=== PATIENT | male | born 1945 | race Caucasian/White ===

== ENCOUNTER 2024-08-16 15:54 | Inpatient (IN) | payer OTHER, MEDICARE ==
[~2024-08-16] VITALS: Ht 172.7 cm; Wt 68.0 kg
[2024-08-16 16:05] VITALS: PULSE 104; RESP 18; O2SAT 95
[2024-08-16] MEDS ORDERED: ACETAMINOPHEN 650MG SUPP PR PRN (16:15)
[2024-08-16] MEDS: ETOMIDATE 2MG/ML 10ML VIAL IV ONE (16:15)
[2024-08-16] MEDS: ROCURONIUM BROMIDE 10MG/ML VIAL 5ML IV ONE (16:15)
[2024-08-16] MEDS ORDERED: FENTANYL CITRATE/PF 50MCG/ML 2ML VIAL IV ONE (16:15)
[2024-08-16] MEDS ORDERED: ACETAMINOPHEN 650MG/20.3ML UDC NG PRN (16:15)
[2024-08-16] MEDS: MIDAZOLAM HCL 2 MG/2 ML VIAL IV ONE (16:20)
[2024-08-16 16:49] LABS: BASOPHILS % 0.3 % (0.0-2.0); DIFFERENTIAL COMMENT 0; EOSINOPHILS % 1.8 % (0.0-5.0); HEMATOCRIT. 50.1 % (42.0-52.0); HEMOGLOBIN. 16.3 g/dL (14.0-18.0); LYMPHOCYTES % 58.9 % (20.0-50.0); MEAN CORPUSCULAR HGB CONC 32.5 g/dL (31.0-37.0); MEAN CORPUSCULAR VOLUME 101.4 fL (80.0-94.0); MONOCYTES % 7.7 % (2.0-8.0); NEUTROPHILS % 31.3 % (40.0-76.0); PLATELET 204 x1000/uL (130-400); RED BLOOD CELL COUNT 4.94 mill/uL (4.7-6.1); RED CELL DISTRIBUTION WIDTH 14.9 % (11.6-14.6); WHITE BLOOD COUNT 10.1 x1000/uL (4.5-11.0)
[2024-08-16] MEDS: NOREPINEPHRINE 8MG/250ML PMX 250 ML IV STA (16:50)
[2024-08-16 16:53] LABS: CALCIUM 9.5 mg/dL (8.7-10.4); CARBON DIOXIDE 21 mEq/L (21-32)
[2024-08-16 16:55] LABS: CHLORIDE 108 mEq/L (98-107); POTASSIUM 3.3 mEq/L (3.5-5.1); SODIUM 139 mEq/L (136-145)
[2024-08-16] MEDS: FENTANYL CITRATE/PF 50MCG/ML 2ML VIAL IV NR (16:56)
[2024-08-16 16:58] LABS: CREATININE 1.4 mg/dL (0.6-1.3); GLUCOSE 177 mg/dL (70-105); UREA NITROGEN BLOOD 16 mg/dL (9-23)
[2024-08-16 17:00] LABS: PHOSPHORUS 3.1 mg/dL (2.5-4.9)
[2024-08-16 17:11] LABS: TROPONIN I HIGH SENSITIVITY 89 ng/L (3.0-53)
[2024-08-16 17:17] LABS: BG BASE EXCESS -7.1 mmol/L (-2.0-3.0); BG CARBOXYHEMOGLOBIN 0.8 % (0.5-1.5); BG DEOXYHEMOGLOBIN 0.8 % (0.0-5.0); BG FRACTION INSPIRED OXYGEN 100; BG HCO3 ACT 18.9 mmol/L (21.0-28.0); BG METHEMOGLOBIN 0.3 % (0.5-1.5); BG OXYGEN SATURATION 99.2 % (94.0-98.0); BG OXYHEMOGLOBIN 98.1 % (94.0-98.0); BG PCO2 39.9 mmHg (35.0-48.0); BG PH 7.293 (7.350-7.450); BG PO2 213.5 mmHg (83.0-108.0); BG SAMPLE SITE RIGHT RADIAL; BG VENT MODE VENT - AC
[2024-08-16] MEDS: PROPOFOL 10MG/ML 100ML 100 ML IV ONE (17:30)
[2024-08-16] MEDS ORDERED: IPRATROPIUM/ALBUTEROL 0.5-3(2.5)MG/3ML NEB HHN PRN ×2 (17:45→18:45)
[2024-08-16 18:02] LABS: PROTHROMBIN TIME 11.4 sec (9.6-11.0)
[2024-08-16 18:10] VITALS: PULSE 111; RESP 18; O2SAT 99
[2024-08-16] MEDS ORDERED: GUAIFENESIN 200MG/10ML SUGAR FREE UDC PO PRN (19:00)
[2024-08-16] MEDS ORDERED: MAGNESIUM/ALUMINUM HYDROXIDE/SIMETHICONE 30ML UDC PO PRN (19:00)
[2024-08-16] MEDS ORDERED: NOREPINEPHRINE 32 MG in DEXT 5% WATER 218 ML IV PRN (19:00)
[2024-08-16] MEDS ORDERED: DEXTROSE 50% WATER 50ML SYRINGE IV PRN (19:00)
[2024-08-16] MEDS ORDERED: DOCUSATE SODIUM 100MG CAPSULE PO PRN (19:00)
[2024-08-16] MEDS ORDERED: ONDANSETRON HCL 4MG/2ML INJ IV PRN (19:00)
[2024-08-16 19:08] LABS: TROPONIN I HIGH SENSITIVITY 563 ng/L (3.0-53)
[2024-08-16] MEDS ORDERED: ENOXAPARIN 80MG/0.8ML SYR SUBCUT SCH (19:15)
[2024-08-16] MEDS: KCL 20MEQ/100ML PREMIX 100 ML IV SCH (19:19)
[2024-08-16] MEDS: DEXT 5%/0.9% NACL 1,000 ML IV SCH (20:14)
[2024-08-16 20:26] VITALS: PULSE 99; RESP 18; O2SAT 99
[2024-08-16] MEDS: ENOXAPARIN 80MG/0.8ML SYR SUBCUT SCH (20:29)
[2024-08-16 20:48] LABS: TROPONIN I HIGH SENSITIVITY 1434 ng/L (3.0-53)
[2024-08-16] MEDS ORDERED: ATORVASTATIN CALCIUM 40MG TABLET PO SCH (21:00)
[2024-08-16] MEDS: PROPOFOL 10MG/ML 100ML 100 ML IV PRN (21:18)
[2024-08-17] VITALS (58 sets, daily range): BP systolic 85–165; BP diastolic 54–115; PULSE 66–148; RESP 12–32; TEMP 37.503–37.7524; O2SAT 91–100
[2024-08-17] MEDS: ACETAMINOPHEN 1000MG/100ML 100 ML IV NR (01:54)
[2024-08-17] MEDS: PROPOFOL 10MG/ML 100ML 100 ML IV SCH (04:30)
[2024-08-17] MEDS ORDERED: FENTANYL CITRATE/PF 2,500 MCG in SODIUM CHLORIDE 0.9% 200 ML IV PRN (05:15)
[2024-08-17] MEDS ORDERED: PROPOFOL 10MG/ML 100ML 100 ML IV PRN (05:15)
[2024-08-17] MEDS ORDERED: MIDAZOLAM HCL 100 MG in SODIUM CHLORIDE 0.9% 80 ML IV PRN (05:15)
[2024-08-17] MEDS ORDERED: ACETAMINOPHEN 650MG SUPP PR PRN (05:15)
[2024-08-17] MEDS ORDERED: FENTANYL CITRATE/PF 1,000 MCG in DEXT 5% WATER 80 ML IV PRN (05:30)
[2024-08-17 05:44] LABS: CLARITY URINE CLEAR (CLEAR); COLOR URINE YELLOW (YELLOW); GLUCOSE URINE 2+ (NEGATIVE); KETONES URINE NEGATIVE (NEGATIVE); LEUKOCYTE ESTERASE URINE NEGATIVE (NEGATIVE); NITRITE URINE NEGATIVE (NEGATIVE); OCCULT BLOOD URINE 2+ (NEGATIVE); PROTEIN URINE NEGATIVE (NEGATIVE); UROBILINOGEN URINE 0.2 E.U./dL (0.2-1.0)
[2024-08-17] MEDS ORDERED: TRIC160 MT (05:59)
[2024-08-17] MEDS ORDERED: CITA10SO PO (05:59)
[2024-08-17] MEDS ORDERED: OMEP20CA14 MT (05:59)
[2024-08-17] MEDS ORDERED: ATEN50TA PO (05:59)
[2024-08-17] MEDS ORDERED: ROSU40TA PO (05:59)
[2024-08-17] MEDS ORDERED: LISI20TA31 PO (05:59)
[2024-08-17 06:26] LABS: *AMPHETAMINES SCREEN URINE NEGATIVE (NEGATIVE); *BARBITURATES SCREEN URINE NEGATIVE (NEGATIVE); *BENZODIAZEPINES SCREEN URINE PRESUMPTIVE POSITIVE (NEGATIVE); *COCAINE SCREEN URINE NEGATIVE (NEGATIVE)
[2024-08-17 06:27] LABS: CANNABINOID URINE SCREEN NEGATIVE (NEGATIVE); ECSTASY MDMA SCREEN URINE NEGATIVE (NEGATIVE); METHADONE URINE SCREEN NEGATIVE (NEGATIVE); OPIATES URINE SCREEN NEGATIVE (NEGATIVE); PHENCYCLIDINE URINE SCREEN NEGATIVE (NEGATIVE)
[2024-08-17 06:42] LABS: WBC URINE 0-2 /hpf (0-2)
[2024-08-17 06:43] LABS: BACTERIA URINE NONE SEEN; SQUAMOUS EPITHELIAL CELL URINE FEW /lpf (RARE/1+)
[2024-08-17] MEDS: NOREPINEPHRINE 32 MG in DEXT 5% WATER 218 ML IV PRN (06:44)
[2024-08-17 06:59] LABS: BASOPHILS % 0.2 % (0.0-2.0); EOSINOPHILS % 0.2 % (0.0-5.0); HEMATOCRIT. 44.6 % (42.0-52.0); HEMOGLOBIN. 15.1 g/dL (14.0-18.0); LYMPHOCYTES % 12.6 % (20.0-50.0); MEAN CORPUSCULAR HEMOGLOBIN 33.4 pg (28.0-32.0); MEAN CORPUSCULAR HGB CONC 33.8 g/dL (31.0-37.0); MEAN PLATELET VOLUME 10.7 fl (7.4-10.4); MONOCYTES % 9.4 % (2.0-8.0); NEUTROPHILS % 77.6 % (40.0-76.0); PLATELET 175 x1000/uL (130-400); RED CELL DISTRIBUTION WIDTH 14.9 % (11.6-14.6); WHITE BLOOD COUNT 10.1 x1000/uL (4.5-11.0)
[2024-08-17 07:08] LABS: CREATINE KINASE MB FRACTION 13.1 ng/mL (0.5-3.6)
[2024-08-17 07:29] LABS: VITAMIN B12 SERUM 397 pg/mL (211-911)
[2024-08-17] MEDS: IPRATROPIUM/ALBUTEROL 0.5-3(2.5)MG/3ML NEB HHN SCH (08:11)
[2024-08-17] MEDS: BLOOD SUGAR DIAGNOSTIC STRIP TEST SCH (08:31)
[2024-08-17] MEDS: PANTOPRAZOLE SODIUM 40 MG/VIAL IV SCH (08:46)
[2024-08-17] MEDS: ASPIRIN 81MG TABLET PO SCH (08:46)
[2024-08-17] MEDS: INSULIN LISPRO 100 UNITS/ML SUBCUT SCH (08:49)
[2024-08-17 08:54] LABS: CHLORIDE 111 mEq/L (98-107); POTASSIUM 4.1 mEq/L (3.5-5.1); SODIUM 143 mEq/L (136-145)
[2024-08-17 08:55] LABS: CALCIUM 9.1 mg/dL (8.7-10.4); CARBON DIOXIDE 20 mEq/L (21-32)
[2024-08-17 09:00] LABS: GLUCOSE 178 mg/dL (70-105); TRIGLYCERIDE 197 mg/dL (0-150); UREA NITROGEN BLOOD 15 mg/dL (9-23)
[2024-08-17 09:01] LABS: LDL CHOLESTEROL 64 mg/dL (5-100)
[2024-08-17 09:02] LABS: ALANINE AMINOTRANSFERASE 41 IU/L (10-49); ALBUMIN 3.9 g/dL (3.2-4.8); ASPARTATE AMINOTRANSFERASE 51 IU/L (<34); CHOLESTEROL 142 mg/dL (<200); CREATINE KINASE 149 IU/L (46-171); HDL CHOLESTEROL 39 mg/dL (>55); PHOSPHORUS 2.5 mg/dL (2.5-4.9)
[2024-08-17 09:03] LABS: BILIRUBIN TOTAL 0.6 mg/dL (0.1-1.0); PROTEIN TOTAL 5.9 g/dL (6.0-8.3)
[2024-08-17 09:11] LABS: BG BASE EXCESS -2.9 mmol/L (-2.0-3.0); BG CARBOXYHEMOGLOBIN 0.8 % (0.5-1.5); BG DEOXYHEMOGLOBIN 0.4 % (0.0-5.0); BG FRACTION INSPIRED OXYGEN 100; BG HCO3 ACT 21.3 mmol/L (21.0-28.0); BG OXYGEN SATURATION 99.6 % (94.0-98.0); BG OXYHEMOGLOBIN 98.8 % (94.0-98.0); BG PCO2 35.8 mmHg (35.0-48.0); BG PH 7.393 (7.350-7.450); BG PO2 347.3 mmHg (83.0-108.0); BG SAMPLE SITE RIGHT RADIAL; BG TOTAL HEMOGLOBIN 15.5 g/dL (13.5-17.5); BG VENT MODE VENT - AC
[2024-08-17] MEDS: ACETAMINOPHEN 650MG/20.3ML UDC NG PRN (10:04)
[2024-08-17] MEDS: HYDRALAZINE 20MG/ML VIAL IV PRN (10:05)
[2024-08-17] MEDS: DIGOXIN 500MCG/2ML AMP IV NR (10:48)
[2024-08-17 11:02] LABS: T4 FREE 0.98 ng/dL (0.89-1.76); THYROID STIMULATING HORMONE 0.48 uIU/mL (0.55-4.78); TROPONIN I HIGH SENSITIVITY 1236 ng/L (3.0-53)
[2024-08-17 11:18] LABS: FOLIC ACID (FOLATE) SERUM > 20.00 ng/mL (>5.38)
[2024-08-17 12:52] LABS: CREATINE KINASE MB FRACTION 10.8 ng/mL (0.5-3.6)
[2024-08-17 13:48] LABS: BG BASE EXCESS -2.3 mmol/L (-2.0-3.0); BG CARBOXYHEMOGLOBIN 0.9 % (0.5-1.5); BG DEOXYHEMOGLOBIN 1.8 % (0.0-5.0); BG FRACTION INSPIRED OXYGEN 40; BG HCO3 ACT 21.5 mmol/L (21.0-28.0); BG METHEMOGLOBIN 0.1 % (0.5-1.5); BG OXYGEN SATURATION 98.2 % (94.0-98.0); BG OXYHEMOGLOBIN 97.2 % (94.0-98.0); BG PCO2 34.7 mmHg (35.0-48.0); BG PO2 105.7 mmHg (83.0-108.0); BG SAMPLE SITE RIGHT RADIAL; BG TOTAL HEMOGLOBIN 15.5 g/dL (13.5-17.5); BG VENT MODE VENT - CPAP
[2024-08-17] MEDS: MAGNESIUM 2 G PREMIX 50 ML IV NR ×2 (18:34→18:39)
[2024-08-17] MEDS: ATORVASTATIN CALCIUM 40MG TABLET NG SCH (20:47)
[2024-08-17 22:20] LABS: CREATINE KINASE MB FRACTION 4.1 ng/mL (0.5-3.6)
[2024-08-18] VITALS (36 sets, daily range): BP systolic 85–159; BP diastolic 57–127; PULSE 64–145; RESP 13–31; TEMP 36.6696–37.66968; O2SAT 92–100
[2024-08-18 06:11] LABS: BASOPHILS % 0.2 % (0.0-2.0); DIFFERENTIAL COMMENT 0; EOSINOPHILS % 0.7 % (0.0-5.0); HEMATOCRIT. 42.7 % (42.0-52.0); HEMOGLOBIN. 14.1 g/dL (14.0-18.0); LYMPHOCYTES % 22.7 % (20.0-50.0); MEAN CORPUSCULAR HEMOGLOBIN 33.1 pg (28.0-32.0); MEAN CORPUSCULAR HGB CONC 33.1 g/dL (31.0-37.0); MEAN CORPUSCULAR VOLUME 100.1 fL (80.0-94.0); MEAN PLATELET VOLUME 11.1 fl (7.4-10.4); MONOCYTES % 6.9 % (2.0-8.0); NEUTROPHILS % 69.5 % (40.0-76.0); PLATELET 159 x1000/uL (130-400); RED BLOOD CELL COUNT 4.26 mill/uL (4.7-6.1); RED CELL DISTRIBUTION WIDTH 14.8 % (11.6-14.6); WHITE BLOOD COUNT 11.7 x1000/uL (4.5-11.0)
[2024-08-18 06:19] LABS: CHLORIDE 105 mEq/L (98-107); POTASSIUM 3.4 mEq/L (3.5-5.1); SODIUM 139 mEq/L (136-145)
[2024-08-18 06:20] LABS: CARBON DIOXIDE 25 mEq/L (21-32)
[2024-08-18 06:21] LABS: CALCIUM 9.2 mg/dL (8.7-10.4)
[2024-08-18 06:25] LABS: CREATININE 0.9 mg/dL (0.6-1.3); GLUCOSE 107 mg/dL (70-105); TRIGLYCERIDE 125 mg/dL (0-150)
[2024-08-18 06:26] LABS: UREA NITROGEN BLOOD 10 mg/dL (9-23)
[2024-08-18 08:15] LABS: TROPONIN I HIGH SENSITIVITY 424 ng/L (3.0-53)
[2024-08-18] MEDS: ASPIRIN 81MG TABLET NG SCH (08:17)
[2024-08-18] MEDS ORDERED: METOPROLOL TARTRATE 5MG/5ML VIAL IV ONE (09:15)
[2024-08-18] MEDS: POTASSIUM CHLORIDE 20MEQ TABLET SR PO NR (09:33)
[2024-08-18] MEDS: DIGOXIN 500MCG/2ML AMP IV NR (09:33)
[2024-08-18] MEDS ORDERED: AMIODARONE HCL 50MG/ML 3ML VIAL IV ONE (09:45)
[2024-08-18] MEDS ORDERED: AMIODARONE HCL 900 MG in DEXT 5% WATER 482 ML IV SCH (10:15)
[2024-08-18] MEDS: AMIODARONE 150MG/100ML PREMIX IV NR (10:29)
[2024-08-18] MEDS: AMIODARONE HCL 450 MG in DEXT 5% WATER 241 ML IV SCH (10:48)
[2024-08-18] MEDS ORDERED: RACEPINEPHRINE 2.25% 0.5ML NEB VIAL HHN NR (15:45)
[2024-08-19] VITALS (51 sets, daily range): BP systolic 89–149; BP diastolic 60–102; PULSE 62–102; RESP 13–29; TEMP 36.61404–36.83628; O2SAT 92–100
[2024-08-19] MEDS: ACETAMINOPHEN 325MG TABLET PO PRN (02:51)
[2024-08-19 06:10] LABS: BASOPHILS % 0.3 % (0.0-2.0); EOSINOPHILS % 1.1 % (0.0-5.0); HEMATOCRIT. 43.4 % (42.0-52.0); HEMOGLOBIN. 14.9 g/dL (14.0-18.0); LYMPHOCYTES % 13.8 % (20.0-50.0); MEAN CORPUSCULAR HEMOGLOBIN 33.7 pg (28.0-32.0); MEAN CORPUSCULAR HGB CONC 34.4 g/dL (31.0-37.0); MEAN CORPUSCULAR VOLUME 98.1 fL (80.0-94.0); MEAN PLATELET VOLUME 10.9 fl (7.4-10.4); NEUTROPHILS % 76.8 % (40.0-76.0); PLATELET 160 x1000/uL (130-400); RED BLOOD CELL COUNT 4.43 mill/uL (4.7-6.1); RED CELL DISTRIBUTION WIDTH 14.3 % (11.6-14.6); WHITE BLOOD COUNT 9.5 x1000/uL (4.5-11.0)
[2024-08-19 06:41] LABS: CHLORIDE 105 mEq/L (98-107); POTASSIUM 3.8 mEq/L (3.5-5.1); SODIUM 135 mEq/L (136-145)
[2024-08-19 06:44] LABS: CARBON DIOXIDE 23 mEq/L (21-32)
[2024-08-19 06:45] LABS: CALCIUM 9.5 mg/dL (8.7-10.4)
[2024-08-19 06:50] LABS: CREATININE 0.8 mg/dL (0.6-1.3); GLUCOSE 122 mg/dL (70-105); UREA NITROGEN BLOOD 13 mg/dL (9-23)
[2024-08-19 06:51] LABS: ALANINE AMINOTRANSFERASE 28 IU/L (10-49); ALBUMIN 3.9 g/dL (3.2-4.8); ASPARTATE AMINOTRANSFERASE 25 IU/L (<34)
[2024-08-19 06:52] LABS: BILIRUBIN DIRECT 0.4 mg/dL (<=3.0); BILIRUBIN TOTAL 1.1 mg/dL (0.1-1.0); PHOSPHORUS 1.8 mg/dL (2.5-4.9); PROTEIN TOTAL 6.4 g/dL (6.0-8.3)
[2024-08-19] MEDS ORDERED: POTASSIUM PHOSPHATE 30 MMOL in SODIUM CHLORIDE 0.9% 490 ML IV ONE (07:45)
[2024-08-19] MEDS ORDERED: SODIUM PHOSPHATE 15 MMOL in SODIUM CHLORIDE 0.9% 245 ML IV SCH (09:00)
[2024-08-19] MEDS: MAGNESIUM 2 G PREMIX 50 ML IV NR (09:14)
[2024-08-19] MEDS: AMIODARONE 200MG TABLET PO SCH (10:00)
[2024-08-19] MEDS: POTASSIUM PHOSPHATE 15 MMOL in SODIUM CHLORIDE 0.9% 245 ML IV SCH (10:00)
[2024-08-19] MEDS: RACEPINEPHRINE 2.25% 0.5ML NEB VIAL HHN PRN (15:39)
[2024-08-19] MEDS ORDERED: ASPI-1160 NG (17:16)
[2024-08-19] MEDS ORDERED: LIP40 NG (17:16)
[2024-08-19] MEDS ORDERED: AMI2 PO (17:16)
== END 2024-08-19 20:33 | disposition short-term general hospital (02) | DRG 208 ==
LOC: ER 15:54 → EDBEDREQTM 16:54 → EDBEDREQ 16:54 → CVICU 08-17 04:20
PROVIDERS: ADMIT Hospitalist; ATTEND Hospitalist
PROC: 5A1935Z Respiratory Ventilation, Less than 24 Consecutive Hours (ICD-10-PCS; principal; 2024-08-16)
PROC: 0BH17EZ Insertion of Endotracheal Airway into Trachea, Via Natural or Artificial Opening (ICD-10-PCS; 2024-08-16)
DX: J96.01 Acute respiratory failure with hypoxia (principal); I46.9 Cardiac arrest, cause unspecified; I21.4 Non-ST elevation (NSTEMI) myocardial infarction; N17.0 Acute kidney failure with tubular necrosis; I47.10 Supraventricular tachycardia, unspecified; G93.40 Encephalopathy, unspecified; E87.20 Acidosis, unspecified; I50.22 Chronic systolic (congestive) heart failure; I95.9 Hypotension, unspecified; E87.6 Hypokalemia; E83.42 Hypomagnesemia; E11.9 Type 2 diabetes mellitus without complications; I11.0 Hypertensive heart disease with heart failure; I25.10 Atherosclerotic heart disease of native coronary artery without angina pectoris; E78.00 Pure hypercholesterolemia, unspecified; I48.91 Unspecified atrial fibrillation; I49.3 Ventricular premature depolarization; E03.8 Other specified hypothyroidism; F41.9 Anxiety disorder, unspecified; Z95.5 Presence of coronary angioplasty implant and graft; Z79.899 Other long term (current) drug therapy
CPT/HCPCS: 31500; 36415; 36600; 71045; 80048; 80053; 80061; 80076; 80305; 81003; 82375; 82550; 82553; 82607; 82746; 82805; 82962; 83036; 83735; 83880; 84100; 84145; 84439; 84443; 84478; 84484; 85025; 87070; 93005; 93306; 94002; 94003; 94070; 94640; 94664; 98960; 99291; J0282; J0360; J1160; J1650; J1815; J2250; J2470; J2704; J3010; J3475; J3480; J3490; J7050; J7060; J0131